=== PATIENT | male | born 2000 | race Caucasian/White ===

== ENCOUNTER 2024-11-29 09:13 | Emergency (ER) | payer OTHER, SELFPAY ==
--- NOTE | ~2024-11-29 | CT_ITS ---
CLINICAL HISTORY: dizziness, foggy, headache CT head without contrast. COMPARISON: None FINDINGS: The visualized paranasal sinuses are clear. The mastoid air cells are clear. No calvarial fracture. No evidence for mass or mass effect. No intracranial hemorrhage or abnormal extra-axial fluid collection. No evidence of hydrocephalus. The basilar cisterns are patent. Posterior fossa is unremarkable. IMPRESSION: 1. No acute intracranial findings. This document has been electronically signed by: Chago Vargas MD on 11/29/2024 15:42:10
[2024-11-29 09:41] VITALS: BP 145/83; PULSE 75; RESP 18; TEMP 36.9; O2SAT 100; BMI 24.2
--- NOTE | 2024-11-29 09:45 | ECG_ITS ---
Test Reason : DIZZINESS Blood Pressure : */* mmHG Vent. Rate : 68 BPM Atrial Rate : 68 BPM P-R Int : 138 ms QRS Dur : 104 ms QT Int : 368 ms P-R-T Axes : 18 87 24 degrees QTcB Int : 391 ms Normal sinus rhythm Normal ECG No previous ECGs available Referred By: Generic ED Physician Electronically Signed By: RANJAN CASTELLANO
[2024-11-29 10:15] LABS: Basophils Percent Auto 0.5 % (0-2); Eosinophils Absolute Auto 0.2 X10*3/uL (0.0-0.4); Hematocrit 44.4 % (42.0-52.0); Hemoglobin 15.3 g/dl (14.0-18.0); Imm Gran Abs Auto 0.01 X10*3/uL (0.00-0.03); Imm Gran Pct Auto 0.2 % (0.0-0.4); Lymphocytes Absolute Auto 1.6 X10*3/uL (1.2-4.9); Lymphocytes Percent Auto 27.3 % (20-40); MANUAL DIFF FLAG NO; Mean Corpuscular HGB Conc 34.5 g/dl (31.0-36.0); Mean Corpuscular Hemoglobin 29.7 pg (27.0-33.0); Mean Platelet Volume 10.6 fL (9.4-12.4); Monocytes Absolute Auto 0.4 X10*3/uL (0.1-1.2); Monocytes Percent Auto 6.4 % (2-11); Neutrophils Absolute Auto 3.6 x10*3/uL (2.0-8.3); Neutrophils Percent Auto 62.6 % (45-73); Platelet Count 220 X10*3/uL (160-400); Red Blood Count 5.16 X10*6/uL (4.60-5.80); Red Cell Distribution Width 12.9 % (11.0-16.0); White Blood Count 5.8 X10*3/uL (4.8-10.8)
[2024-11-29 10:32] LABS: Alanine Aminotransferase 28 U/L (0-40); Albumin Level 4.8 g/dL (3.5-5.0); Alkaline Phosphatase 65 U/L (39-117); Anion Gap 11 (12-20); Aspartate Amino Transferase 25 U/L (5-37); Bilirubin Total 0.7 mg/dL (0.0-1.0); Blood Urea Nitrogen 14 mg/dL (9-16); Calcium 9.6 mg/dL (8.4-10.2); Carbon Dioxide 28 mmol/L (22-29); Chloride 104 mmol/L (96-108); Creatinine Clr Calc Pharmacy 118.1; Estimated Glomerular Filt Rate > 60; Glucose Random 101 mg/dL (60-115); Potassium 4.4 mmol/L (3.3-5.1); Sodium 139 mmol/L (135-145); Total Protein 8.2 g/dL (6.5-8.0)
[2024-11-29 10:52] LABS: Influenza A PCR NEGATIVE (Negative); Influenza B PCR NEGATIVE (Negative); Resp Syncy Virus RNA Qual PCR NEGATIVE (Negative); SARS COV2 PCR INHOUSE NEGATIVE (Negative)
[2024-11-29 12:16] LABS: Appearance Urine Clear; Color Urine Yellow; Glucose Urine UA Negative (Negative); Leukocyte Esterase Urine Negative (Negative); Nitrite Urine Negative (Negative); Specific Gravity - Urine <= 1.005 (1.005-1.025); Urine Blood Negative (Negative); Urine Ketones Negative (Negative); Urine Protein Negative (Neg-Trace)
--- NOTE | 2024-11-29 14:15 | ED.DIZZY ---
HPI - Dizziness General Chief Complaint: Dizziness Stated Complaint: weakness Time Seen by Provider: 11/29/24 14:15 Source: patient and family (dad) Mode of arrival: ambulatory Limitations: no limitations History of Present Illness ED Provider: NUSRAT SHAHID PA-C HPI Narrative: 24 year old male with pmhx significant for pilonidal cysts, nephrectomy, presents to the ED today for evaluation of feeling like I am going to pass out . 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 He denies LOC, falling to the ground or head strike. Not on AC. He was not exerting himself with this feeling occurred. He also reports feeling sweaty, nauseous, and weak during this episode. He reports waking up with a generalized headache this morning, which is unusual for him. He denies recent illnesses or known sick contacts. Reports similar episodes in the past month, but states previous episodes only last a couple of minutes before completely resolving and were not as severe. He denies personal cardiac history or family cardiac history. No sudden cardiac deaths in the faily. At evaluation in the ED, he states his symptoms have resolved aside from a feeling of fogginess . Denies fever, chills, N/V, vision changes, chest pain, SOB, palpitations, LE pain/swelling. No recent travel or long car rides. No recent surgery or trauma. Related Data Allergies Allergy/AdvReac Type Severity Reaction Status Date / Time No Known Allergies Allergy Verified 11/29/24 09:43 Review of Systems Review of Systems: Constitutional: No fever, chills, fatigue, night sweats, weight changes ENT/Mouth: No ear pain, hearing loss, nasal congestion, sinus pain, rhinorrhea, sore throat Eyes: No eye pain, swelling, redness, vision changes, discharge Cardio: No chest pain, palpitations, BIRCH, orthopnea, peripheral edema Pulm: No SOB, cough, sputum, wheezing, dyspnea, hemoptysis GI: No nausea, vomiting, hematemesis, abdominal pain, diarrhea, constipation, hematochezia, melena : No irregular bleeding, dysuria, frequency, urgency, hesitancy, hematuria, flank pain, urinary flow changes, urinary incontinence or retention MSK: No back pain, neck pain, joint pain, myalgias Skin: No lesions, rashes Neuro: No weakness, numbness, paresthesias, LOC, dizziness, headache Psych: No anxiety/panic, depression, SI/HI, AH/VH All other systems reviewed and are negative. [facility] Past Medical History Attestation statement: The following information was validated with the patient. Source: old records reviewed and nursing notes reviewed Social History Social History Alcohol intake: current Alcohol type: beer Physical Exam Vital Signs: Vital Signs: Last Vital Signs Temp 98.0 F 11/29/24 16:42 Pulse 79 11/29/24 16:42 Resp 18 11/29/24 16:42 BP 120/78 11/29/24 16:42 Pulse Ox 99 11/29/24 16:42 O2 Del Method Room Air 11/29/24 16:42 BMI result Body Mass Index 24.2 vital signs stable General: Well appearing, in no acute distress. Skin: Warm, dry, intact. No rashes or lesions. Head: Normocephalic, atraumatic. EENT: Hearing is intact b/l. Conjunctiva clear. Sclera is anicteric. PERRLA. EOM intact. Moist mucous membranes.? Neck: Supple without LAD Cardiac: Chest wall symmetric. RRR. Lungs: Normal respiratory effort without accessory muscle use. CTA bilaterally. Abdomen: Soft, non-tender, non-distended. No rebound tenderness or guarding. Ext: Upper and lower extremities atraumatic, without tenderness, deformity, swelling or erythema. no calf tenderness b/l. Neuro: AOx3. Normal speech. NIH 0. no facial droop or slurred speech. normal finger to nose, heel to freeman. Strength 5/5 intact throughout. Sensation intact to light touch. NV intact distally. Psych: Appropriate mood and affect. Responds appropriately to questions. Course Course Course Narrative: 153 -- CBC without leukocytosis or left shift. No anemia. H&H stable. Chemistry without acute electrolyte abnormality requiring intervention. No ARVIND. Liver function WNL. troponin undetectable. TSH WNL. Urine without infection. Negative COVID, flu, RSV. CT head without bleed or mass. ekg showing NSR without acute ischemic changes or st elevations. > at this time, cause of these episodes are unclear. he does not appear dehydrated, orthostatic vital signs are negative, he is not hypoglycemic, it does not appear cardiac related as he denies chest pain/palpitations/sob, not consistent with seizure like activity, PERC negative (PE unlikely) > he was treated with 1L IVF while in ED today. he is asymptomatic at present. > discussed all work up results with patient. Advised to follow up with his PCP. Patient has remained stable throughout ED visit today. Discussed worrisome signs and symptoms and when to return to the ED. All questions answered at this time. Patient is agreeable with disposition and stable for discharge. Medications Administered Discontinued Medications Generic Name Dose Route Start Last Admin Trade Name Freq PRN Reason Stop Dose Admin Sodium Chloride 1,000 mls @ 999 mls/hr 11/29/24 15:15 11/29/24 15:58 Ns IV 11/29/24 16:15 999 mls/hr .Q1H1M STONE Administration Medical Decision Making Medical Decision Making [facility] Narrative: 24 year old male with pmhx significant for pilonidal cysts, nephrectomy, presents to the ED today for evaluation of feeling like I am going to pass out . Differential diagnoses includes: viral syndrome, anemia, electrolyte abnormality, hypoglycemia, orthostatic hypotension, dehydration, BPPV vs labrynthitis No red flag features for central vertigo to include gradual onset, vertical/bidirectional or nonfatigable nystagmus, focal neurologic findings on exam (including inability to ambulate). Presentation not consistent with an acute INTEGRATED [employer]CUITS INSPECTOR infection, vertebral basilar artery insufficiency, cerebellar hemorrhage or infarction,?intracranial mass or bleed, temporal lobe epilepsy,?MS, trauma, complex migraine headache. I have also considered ACS, arrhythmia, PE (PERC ), pneumonia, UTI. Plan: labs, ekg, viral swabs, UA, trial of IVF, CT head/brain, serial reassessment Differential Diagnosis Differential Diagnoses: The differential diagnosis associated with the presentation includes as above. Admission/Observation not indicated Lab Data [facility] Lab Attestation statement: I reviewed the patient's lab results. as above. 11/29/24 10:08 11/29/24 10:08 Labs: Lab Results 11/29/24 11/29/24 Range/Units 10:08 12:00 WBC 5.8 (4.8-10.8) X10*3/uL RBC 5.16 (4.60-5.80) X10*6/uL Hgb 15.3 (14.0-18.0) g/dl Hct 44.4 (42.0-52.0) % MCV 86.0 (80.0-98.0) fL MCH 29.7 (27.0-33.0) pg MCHC 34.5 (31.0-36.0) g/dl RDW 12.9 (11.0-16.0) % Plt Count 220 (160-400) X10*3/uL MPV 10.6 (9.4-12.4) fL Immature Gran % (Auto) 0.2 (0.0-0.4) % Neut % (Auto) 62.6 (45-73) % Lymph % (Auto) 27.3 (20-40) % [place] % (Auto) 6.4 (2-11) % Eos % (Auto) 3.0 (0-4) % Baso % (Auto) 0.5 (0-2) % Lymph # (Auto) 1.6 (1.2-4.9) X10*3/uL [place] # (Auto) 0.4 (0.1-1.2) X10*3/uL Eos # (Auto) 0.2 (0.0-0.4) X10*3/uL Baso # (Auto) 0.0 (0.0-0.2) X10*3/uL Abs Immat Gran (auto) 0.01 (0.00-0.03) X10*3/uL Absolute Neuts (auto) 3.6 (2.0-8.3) x10*3/uL Absolute Nucleated RBC 0.000 (0.0-0.012) X10*3/uL Nucleated RBC % (auto) 0.0 (0.0-0.2) /100WBC Sodium 139 (135-145) mmol/L Potassium 4.4 (3.3-5.1) mmol/L Chloride 104 (96-108) mmol/L Carbon Dioxide 28 (22-29) mmol/L Anion Gap 11 L (12-20) BUN 14 (9-16) mg/dL Creatinine 1.14 (0.5-1.4) mg/dL Estim Creat Clear Calc 118.1 Estimated GFR > 60 Random Glucose 101 (60-115) mg/dL Calcium 9.6 (8.4-10.2) mg/dL Total Bilirubin 0.7 (0.0-1.0) mg/dL AST 25 (5-37) U/L ALT 28 (0-40) U/L Alkaline Phosphatase 65 (39-117) U/L Troponin I High Sens < 2.7 (<3.5-35.0) ng/L Total Protein 8.2 H (6.5-8.0) g/dL Albumin 4.8 (3.5-5.0) g/dL TSH 1.43 (0.32-4.0) uIU/mL Urine Color Yellow Urine Appearance Clear Urine pH 7.0 (5.0-9.0) Ur Specific [place] <= 1.005 (1.005-1.025) Urine Protein Negative (Neg-Trace) mg/dL Urine Glucose (UA) Negative (Negative) mg/dL Urine Ketones Negative (Negative) mg/dL Urine Blood Negative (Negative) Urine Nitrite Negative (Negative) Ur Leukocyte Esterase Negative (Negative) Influenza Type A (PCR) NEGATIVE (Negative) Influenza Type B (PCR) NEGATIVE (Negative) RSV RNA Qual (PCR) NEGATIVE (Negative) SARS-CoV-2 RNA (RT-PCR) NEGATIVE (Negative) Independent Interpretation I performed an independent interpretation of an: EKG and CT Scan Interpretation: ct head/ brain without intracranial bleed or mass EKG showing normal sinus rhythm, rate of 68 beats per minute, QT 368, QTC 391, no acute ischemic changes or ST elevation Radiology Impression Discussion of test interpretation with radiology: I have reviewed the radiologist's reading. Radiologist Impression: Date of Service: 11/29/24 Procedure(s): CT head/brain wo IV con Accession Number(s): [id number] cc: [facility]; Nusrat Shahid~ Report Number: [id number]: Total DLP = 754.00 mGy-cm CLINICAL HISTORY: dizziness, foggy, headache CT head without contrast. COMPARISON: None FINDINGS: The visualized paranasal sinuses are clear. The mastoid air cells are clear. No calvarial fracture. No evidence for mass or mass effect. No intracranial hemorrhage or abnormal extra-axial fluid collection. No evidence of hydrocephalus. The basilar cisterns are patent. Posterior fossa is unremarkable. IMPRESSION: 1. No acute intracranial findings. This document has been electronically signed by: Chago Vargas MD on 11/29/2024 15:42:10 Independent Historian Clinical information obtained from an independent historian. History obtained from or confirmed by: Parent (dad) Social Determinants Patient?s care significantly limited by Social Determinants of Health including: Other Social Determinant of Health Critical Care Time Critical Care Time Critical Care Time: No Discharge Plan Discharge Clinical Impression: Light headedness Patient Disposition: Home, Self-Care Instructions: Lightheadedness (ED) Additional Instructions: Your work up today is reassuring. Your blood count is normal, no anemia. There is no white count to indicate an infection. Your thyroid levels are normal. Your cardiac enzyme is normal. Your ekg is normal. The CT scan of your head is normal - there is not intracranial bleed or mass. You tested negative for covid, flu, rsv. Your blood pressure did not drop when going from lying to sitting to standing. You've received IV fluids in ED today. At this time, it is unclear what may be causing these episodes but your work up today is reassuring. Make sure you are staying adequately hydrated. Please follow up with your outpatient primary care provider within the next week or two. Return with any new or worsening symptoms. In the case of an emergency call 911. Referrals: [facility] [Primary Care Provider] - Stand Alone Forms: Work/School Release Interventions: ED Discharge Assessment Last Done: 11/29/24 16:42 Discharge Date/Time: 11/29/24 16:42 Print Language: Icelandic
[2024-11-29 14:25] VITALS: BP 133/80; PULSE 61; RESP 18; TEMP 36.7; O2SAT 99
[2024-11-29 14:49] LABS: TSH reflex Free T4 1.43 uIU/mL (0.32-4.0)
[2024-11-29 15:10] VITALS: BP 119/77; BP 130/77; PULSE 58; PULSE 63
[2024-11-29 15:12] VITALS: BP 120/78; PULSE 79
[2024-11-29] MEDS: 0.9 % Sodium Chloride 1,000 ML 999 ML IV (15:58)
[2024-11-29 16:15] LABS: Troponin-I High Sensitivity < 2.7 ng/L (<3.5-35.0)
[2024-11-29 16:42] VITALS: BP 120/78; PULSE 79; RESP 18; TEMP 36.7; O2SAT 99
== END 2024-11-29 16:42 | disposition home or self-care (01) ==
PROVIDERS: Physician Assistant Medical; Emergency Provider Emergency Medicine
DX: R42 Dizziness and giddiness (principal); Z03.818 Encounter for observation for suspected exposure to other biological agents ruled out
CPT/HCPCS: 0241U; 70450; 80053; 81003; 84443; 84484; 85025; 93005; 96360; 99284; 99285

== ENCOUNTER → 2024-11-29 09:45 | Outpatient (BNV) | payer OTHER, SELFPAY | PROVIDERS: Emergency Provider Emergency Medicine; Visit Provider Internal Medicine | DX: R42 Dizziness and giddiness (principal) | CPT/HCPCS: 93010 ==

== ENCOUNTER → 2024-11-29 14:31 | Outpatient (BNV) | payer OTHER, SELFPAY | PROVIDERS: Emergency Provider Emergency Medicine; Visit Provider Radiology Diagnostic Radiology | DX: R42 Dizziness and giddiness (principal) | CPT/HCPCS: 70450 ==

== ENCOUNTER 2024-12-18 11:29 | Outpatient (AMB) | payer OTHER, SELFPAY ==
[2024-12-18 11:34] VITALS: BP 110/78; PULSE 81; RESP 18; TEMP 37.2; O2SAT 98; BMI 24.1
--- NOTE | 2024-12-18 11:34 | A.OFFPC_ITS ---
Vital Signs 12/18/24 11:34 Height 6 ft 2 in Weight 188 lb BMI 24.1 BP 110/78 Blood Pressure Location Lt brachial Position Sitting Respiration 18 Pulse 81 Pulse Source Pulse Oximeter Temp 98.9 F Temp Source Oral Pulse Oximetry (%) 98 Oxygen Delivery Method Room Air Intake Visit Reasons: establish care Web Marketing Intern Required: No Accompanied by: Self / Same As Patient Allergies No Known Allergies Allergy (Verified 12/18/24 11:53) Medication List - Last Reconciled 12/18/24 by MARIO Riley doxycycline monohydrate 100 mg PO BID Tobacco use date assessed: 12/18/24 Dental Screening Dental Screen Date: 12/18/24 Did you have a dental visit in the last 12 months?: Yes Did you have a dental problem in the last 6 months where you did not have access to dental care?: No Was dental information given to patient?: Patient has dentist HPI establish care HPI Details Previous PCP: [facility] Last visit:3-4 years Last PE: 2022 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 He had 3 surgery to stop the bleeding, then they removed. At [facility]. Medications:doxycycline Family HX: Problem: Pilonial cyst: He was placed on Doxycycline 100 mg BID for month by dermatology. He is supposed to keep eye on this and follow up with them. He is asking to be referred to surgeon to get removed. Been going on for months now. Reports that he is not sure how long it been there before he noticed it. [facility] Surgical History H/O right nephrectomy Social History Housing: House Alcohol intake: current Alcohol type: beer Patient Tobacco Use Status: Never used Tobacco e-Cigarette/Vaping Use: Never Used Second Hand Smoke Exposure: No service: No Current occupational status: employed Current occupational exposures/hazards: Yes Cognitive needs: No Hearing needs: No Vision needs: No Questionnaire PHQ-9 Over the last 2 weeks, how often have you been bothered by any of the following problems? 1. Little interest or pleasure in doing things: not at all 2. Feeling down, depressed, or hopeless: not at all 3. Trouble falling or staying asleep, or sleeping too much: not at all 4. Feeling tired or having little energy: not at all 5. Poor appetite or overeating: not at all 6. Feeling bad about yourself - or that you are a failure or have let yourself or your family down: not at all 7. Trouble concentrating on things, such as reading the newspaper or watching television: not at all 8. Moving or speaking so slowly that other people could have noticed. Or the opposite - being so fidgety or restless that you have been moving around a lot more than usual: not at all 9. Thoughts that you would be better off or of hurting yourself in some way: not at all Total score: 0 Depression Screening Interpretation: Negative Depression Screening Done: Yes 35079 - PHQ-9 Billing: Yes Source: Developed by Drs. Skyler Giordano, Zulma Armstrong, Erich Ortega and colleagues, with an educational ofe from [employer]. Thrive Questionnaire Date Thrive assessed: 12/18/24 I am a: Patient What is your living situation today?: I have a steady place to live Within the past 12 months, did the food you bought not last and you didn't have the money to get more?: Never true Within the past 12 months, did you worry whether your food would run out before you got money to buy more?: Never true Do you have trouble paying for medicines?: No Do you have trouble getting transportation to medical appointments?: No Do you have trouble paying your heating and electricity bill?: No Do you have trouble taking care of your child, family member or friend?: No Do you have trouble with day-to-day activities such as bathing, preparing meals, shopping, managing finances, etc.?: No Are you currently unemployed and looking for a job?: No Are you interested in more education?: No Please select the resources that you would like help with: None Currently or been in a relationship where the following occur: No concerns reported THRIVE Score: 0 AUDIT C Alcohol Use Questionnaire (AUDIT-C) 1. How often do you have a drink containing alcohol?: 2-4 times a month 2. How many drinks containing alcohol do you have on a typical day when you are drinking?: 1 or 2 3. How often do you have six or more drinks on one occasion?: Less than monthly Total Score: 3 ZACHARY-7 AMB Questionnaire ZACHARY-7 Date ZACHARY - 7 assessed: 12/18/24 Feeling nervous, anxious, or on edge: 0 = Not at all Not being able to stop or control worryin = Not at all Worrying too much about different things: 0 = Not at all Trouble relaxin = Not at all Being so restless that it is hard to sit still: 0 = Not at all Becoming easily annoyed or irritable: 0 = Not at all Feeling afraid as if something awful might happen: 0 = Not at all Total ZACHARY-7 score (0-4 normal; 5-9 mild; 10-14 moderate; 15-21 severe): 0 Source: Developed by Drs. Skyler Giordano, Zulma Armstrong, Erich Ortega and colleagues, with an educational ofe from [employer]. ZACHARY-7 Assessment Billing ZACHARY-7 Assessment Tool: ZACHARY-7 Assessment 29492 Review of Systems Const Denies headache(s) Eyes Denies loss of vision ENT Denies vertigo, Denies dizziness, Denies headache(s) and Denies sore throat Card Denies chest pain, Denies leg edema and Denies lightheadedness Resp Denies cough, Denies hemoptysis and Denies wheezing GI Denies abdominal pain, Denies melena, Denies constipation, Denies diarrhea, Denies vomiting and Reports other (recurrent pilonidal cyst) Denies dysuria, Denies urinary frequency and Denies urinary urgency Musc Denies arthralgias, Denies joint swelling, Denies numbness and Denies tingling Neuro Denies Abnormal speech present, Denies behavioral changes, Denies vertigo, Denies dizziness, Denies headache(s), Denies loss of vision, Denies memory loss, Denies numbness and Denies tingling Psych Denies anxiety, Denies behavioral changes, Denies depression, Denies memory loss and Denies panic attacks García/Lymph Denies easy bleeding and Denies easy bruising Aller/Immun Denies wheezing Physical exam (Primary Care) Vital Signs: Last Vital Signs Temp 98.9 F 12/18/24 11:34 Pulse 81 12/18/24 11:34 Resp 18 12/18/24 11:34 BP 110/78 12/18/24 11:34 Pulse Ox 98 12/18/24 11:34 Oxygen Delivery Method Room Air 12/18/24 11:34 BMI result Body Mass Index 24.1 Tobacco/Smoking Status: Tobacco use Status Tobacco use date assessed 12/18/24 12/18/24 11:41 Patient Tobacco Use Status Never used Tobacco 12/18/24 11:41 e-Cigarette/Vaping Use Never Used 12/18/24 11:41 PHQ-9: PHQ-9 Score PHQ-9: Total score 0 12/18/24 12:03 Depression Screening Interpretation: Negative Thrive Assessment: Date of Thrive Assessment Date Thrive assessed 12/18/24 12/18/24 11:41 Currently or been in a relationship where the following occur: No concerns reported Const General: healthy appearing, no acute distress, alert and awake Nutritional Appearance: well nourished Orientation/consciousness: oriented to person, oriented to place and oriented to time HENMT Ears: TM's normal bilaterally General nose exam: Normal nasal mucous membranes and turbinates present Eyes Conjunctivae: conjunctivae normal Sclerae: sclerae normal Pupils: Equal, round and reactive pupils present Neck Neck: Yes no lymphadenopathy and Yes no JVD Thyroid: Thyroid normal Carotids: no bruits Resp Effort & Inspection: normal respiratory effort and not tachypneic Auscultation: no crackles, no rales, no rhonchi and no wheezes Cardio Rate: regular rate Rhythm: regular rhythm Heart sounds: no murmurs and normal S1 and S2 GI Palpation (GI): Soft to palpation, nontender, no hepatomegaly and no splenomegaly Auscultation: normal bowel sounds Rectal Exam - Male: Yes Lesions present (GI) (pilonidal cyst) General: Yes no CVA tenderness Back/Spine/Pelvis Back: no CVA tenderness Skin General skin exam: no rashes or lesions noted and dry skin Neuro General: oriented to person, oriented to place and oriented to time Cranial nerves: Yes Equal, round and reactive pupils present Speech: No Abnormal speech present Gait exam (Neuro): Normal gait present Motor exam (neuro): no tremor noted Extrem Right upper extremity: full ROM Left upper extremity: full ROM Right lower extremity: full ROM; no edema Left lower extremity: full ROM; no edema Psych Mental Status: mental status grossly normal Speech and movement: Normal speech and movement present Affect: normal affect Attitude: cooperative Thought process: Normal thought process present Coding Level of Care Code New Pt Level 3 (46663) Diagnoses Encounter to establish care with new provider Z76 Pilonidal cyst L05. Additional Codes PHQ-9 - 00403 - PHQ-9 Billing: Yes ([id number]) ZACHARY-7 Assessment Billing - ZACHARY-7 Assessment Tool: ZACHARY-7 Assessment 63189 ([id number]) Time Spent (min) 36 Assessment & Plan Assessment & Plan (1) Encounter to establish care with new provider: Code(s): Z76.89 - Persons encountering health services in other specified circumstances Category: Medical Plan: ordered labs, will advise (2) Pilonidal cyst: Code(s): L. - Pilonidal cyst without abscess Category: Medical Plan: reports recurrent pilonidal cyst he is currently being treated with doxycycline by dermatology he would like this to be surgically removed due to the discomfort and the reoccurrence general surgery referral placed Orders: Orders Comprehensive [place]. Panel Fast 12/18/24 Z - Persons encountering health services in other specified circumstances TSH reflex Free T4 12/18/24 - Persons encountering health services in ot her specified circumstances Complete Blood Count Auto Diff 12/18/24 - Persons encountering health services in other specified circumstances Lipid Panel 12/18/24 - Persons encountering health services in other specified circumstances UA CC w/rflx Micro + Cult 12/18/24 - Persons encountering health services in other specified circumstances Vitamin D 25-OH Total 12/18/24 - Persons encountering health services in other specified circumstances
--- OUTSIDE RECORDS SUMMARY | 2024-12-18 13:53 | XMS_ITS | Encounter Summary ---
Author Organization [facility] Address [address] [place] [phone] Phone Care Team Providers Care Squeegee Finisher Name Role Phone Kurtis Siddiqui MD Primary Care Provider [phone] Encounter Details Date Type Department Care Team (Late st Contact Info) Description 01/30/2014 Documentation [facility] [address] [place], [place] [id number] Family Medicine, Physician [address] [place] [address] Social History Tobacco Use Types Packs/Day Years Used Date Smoking Tobacco: Never Assessed Sex and Gender Information Value Date Recorded Sex Assigned at Not on file Legal Sex Male 5:09 PM EDT Gender Identity Not on file Sexual Orientation Not on file documented as of this encounter Plan of Treatment Not on file documented as of this encounter Visit Diagnoses Not on filedocumented in this encounter Care Teams Squeegee Finisher Relationship Specialty Start Date End Date Kurtis Siddiqui MD [address] [place], [place] [id number] PCP - General Pediatrics 07/17/17 11/21/23 documented as of this encounter
== END 2024-12-18 12:20 | disposition home or self-care (01) ==
LOC: HO.HMCH 11:30
DX: Z76.89 Persons encountering health services in other specified circumstances (principal); L05.91 Pilonidal cyst without abscess

== ENCOUNTER → 2024-12-18 11:29 | Outpatient (BNVA) | payer OTHER, SELFPAY | DX: L05.91 Pilonidal cyst without abscess (principal); Z76.89 Persons encountering health services in other specified circumstances | CPT/HCPCS: 96127 ==

== ENCOUNTER 2025-02-24 09:24 | Outpatient (AMB) | payer OTHER, SELFPAY ==
[2025-02-24 09:26] VITALS: BP 106/62; PULSE 66; RESP 18; TEMP 36.3; O2SAT 97; BMI 23.4
--- NOTE | 2025-02-24 09:26 | MHC.PC.OV ---
Vital Signs 02/24/25 09:26 Height 6 ft 2 in Weight 182 lb 2 oz BMI 23.4 BP 106/62 Blood Pressure Location Lt brachial Position Sitting Respiration 18 Pulse 66 Pulse Source Pulse Oximeter Temp 97.3 F Temp Source Temporal Artery Scan Pulse Oximetry (%) 97 Oxygen Delivery Method Room Air Intake Visit Reasons: annual Family Law Legal Assistant Required: No Accompanied by: Self / Same As Patient Allergies No Known Allergies Allergy (Verified 02/24/25 09:38) Medication List - Last Reconciled 02/24/25 by MARIO Riley No Known Home Meds Tobacco use date assessed: 02/24/25 Dental Screening Dental Screen Date: 02/24/25 Did you have a dental visit in the last 12 months?: Yes Did you have a dental problem in the last 6 months where you did not have access to dental care?: No Was dental information given to patient?: Patient has dentist HPI annual HPI Details Patient is presenting for annual physical Dentist: up to date Eye: up to date Snellen: Right: Left: Corrected vision: yes-prescribed glasses but does not wear them often STI screening:n/a Colonoscopy:n/a Pap Smer:n/a PHQ-9: Flu:has not taken this in couple to years COVID: x2 Tdap: reports having this in the last 5 years due to cut from working on cars Diet:regular Exercise:reports working out about 3 times a week. The patient is a 24-year-old male presenting with a follow-up on tuberculosis exposure and a pilonidal cyst requiring surgical consultation. The patient reports a recent exposure to tuberculosis, which occurred on a Sunday, with subsequent symptoms appearing the following Sunday night. He acknowledges that the symptoms were likely psychosomatic as they appeared too soon after exposure. He was in the same room as the infected individual for approximately five minutes and has not experienced any further symptoms since the initial incident. The patient also reports visual impairment, for which he has been prescribed corrective lenses. He uses the glasses occasionally, primarily when experiencing headaches or eye fatigue, particularly in the evening while watching television. Additionally, the patient has a pilonidal cyst that requires surgical consultation. He expresses a desire for the cyst to be removed soon due to its annoyance. The consultation is scheduled at a [facility] general surgery In terms of preventative care, the patient has undergone a complete metabolic panel to assess liver and kidney function. He is aware of the importance of avoiding nephrotoxic medications such as ibuprofen. The patient had TB exposure, he is due to go get tb spot in 7 weeks; he has been asymptomatic [facility] Surgical History H/O right nephrectomy Social History Housing: House Alcohol intake: current Alcohol type: beer Patient Tobacco Use Status: Never used Tobacco e-Cigarette/Vaping Use: Never Used Second Hand Smoke Exposure: No service: No Current occupational status: employed Current occupational exposures/hazards: Yes Cognitive needs: No Hearing needs: No Vision needs: No Questionnaire PHQ-9 Over the last 2 weeks, how often have you been bothered by any of the following problems? 1. Little interest or pleasure in doing things: not at all 2. Feeling down, depressed, or hopeless: not at all 3. Trouble falling or staying asleep, or sleeping too much: not at all 4. Feeling tired or having little energy: not at all 5. Poor appetite or overeating: not at all 6. Feeling bad about yourself - or that you are a failure or have let yourself or your family down: not at all 7. Trouble concentrating on things, such as reading the newspaper or watching television: not at all 8. Moving or speaking so slowly that other people could have noticed. Or the opposite - being so fidgety or restless that you have been moving around a lot more than usual: not at all 9. Thoughts that you would be better off or of hurting yourself in some way: not at all Total score: 0 Depression Screening Interpretation: Negative Depression Screening Done: Yes Source: Developed by Drs. Skyler Giordano, Zulma Armstrong, Erich Ortega and colleagues, with an educational ofe from [employer]. Thrive Questionnaire Date Thrive assessed: 02/24/25 I am a: Patient What is your living situation today?: I have a steady place to live Within the past 12 months, did the food you bought not last and you didn't have the money to get more?: Never true Within the past 12 months, did you worry whether your food would run out before you got money to buy more?: Never true Do you have trouble paying for medicines?: No Do you have trouble getting transportation to medical appointments?: No Do you have trouble paying your heating and electricity bill?: No Do you have trouble taking care of your child, family member or friend?: No Do you have trouble with day-to-day activities such as bathing, preparing meals, shopping, managing finances, etc.?: No Are you currently unemployed and looking for a job?: No Are you interested in more education?: No Please select the resources that you would like help with: None Currently or been in a relationship where the following occur: No concerns reported THRIVE Score: 0 AUDIT C Alcohol Use Questionnaire (AUDIT-C) 1. How often do you have a drink containing alcohol?: 2-4 times a month 2. How many drinks containing alcohol do you have on a typical day when you are drinking?: 1 or 2 3. How often do you have six or more drinks on one occasion?: Less than monthly Total Score: 3 ZACHARY-7 AMB Questionnaire ZACHARY-7 Date ZACHARY - 7 assessed: 02/24/25 Feeling nervous, anxious, or on edge: 0 = Not at all Not being able to stop or control worryin = Not at all Worrying too much about different things: 0 = Not at all Trouble relaxin = Not at all Being so restless that it is hard to sit still: 0 = Not at all Becoming easily annoyed or irritable: 0 = Not at all Feeling afraid as if something awful might happen: 0 = Not at all Total ZACHARY-7 score (0-4 normal; 5-9 mild; 10-14 moderate; 15-21 severe): 0 Source: Developed by Drs. Skyler Giordano, Zulma Armstrong, Erich Ortega and colleagues, with an educational ofe from [employer]. Review of Systems Const Denies headache(s) Eyes Denies loss of vision ENT Denies vertigo, Denies dizziness, Denies headache(s) and Denies sore throat Card Denies chest pain, Denies leg edema and Denies lightheadedness Resp Denies cough, Denies hemoptysis and Denies wheezing GI Denies abdominal pain, Denies melena, Denies constipation, Denies diarrhea, Denies vomiting and Reports other (Pilonidal cyst) Denies dysuria, Denies urinary frequency and Denies urinary urgency Musc Denies arthralgias, Denies joint swelling, Denies numbness and Denies tingling Neuro Denies Abnormal speech present, Denies behavioral changes, Denies vertigo, Denies dizziness, Denies headache(s), Denies loss of vision, Denies memory loss, Denies numbness and Denies tingling Psych Denies anxiety, Denies behavioral changes, Denies depression, Denies memory loss and Denies panic attacks García/Lymph Denies easy bleeding and Denies easy bruising Aller/Immun Denies wheezing Physical exam (Primary Care) Vital Signs: Last Vital Signs Temp 97.3 F 02/24/25 09:26 Pulse 66 02/24/25 09:26 Resp 18 02/24/25 09:26 BP 106/62 02/24/25 09:26 Pulse Ox 97 02/24/25 09:26 Oxygen Delivery Method Room Air 02/24/25 09:26 BMI result Body Mass Index 23.4 Tobacco/Smoking Status: Tobacco use Status Tobacco use date assessed 02/24/25 02/24/25 09:32 Patient Tobacco Use Status Never used Tobacco 02/24/25 09:32 e-Cigarette/Vaping Use Never Used 02/24/25 09:32 PHQ-9: PHQ-9 Score PHQ-9: Total score 0 02/24/25 09:42 Depression Screening Interpretation: Negative Thrive Assessment: Date of Thrive Assessment Date Thrive assessed 02/24/25 02/24/25 09:32 Currently or been in a relationship where the following occur: No concerns reported Const General: healthy appearing, no acute distress, alert and awake Nutritional Appearance: well nourished Orientation/consciousness: oriented to person, oriented to place and oriented to time HENMT Ears: TM's normal bilaterally General nose exam: Normal nasal mucous membranes and turbinates present Eyes Conjunctivae: conjunctivae normal Sclerae: sclerae normal Pupils: Equal, round and reactive pupils present Neck Neck: Yes no lymphadenopathy and Yes no JVD Thyroid: Thyroid normal Carotids: no bruits Resp Effort & Inspection: normal respiratory effort and not tachypneic Auscultation: no crackles, no rales, no rhonchi and no wheezes Cardio Rate: regular rate Rhythm: regular rhythm Heart sounds: no murmurs and normal S1 and S2 GI Palpation (GI): Soft to palpation, nontender, no hepatomegaly and no splenomegaly Auscultation: normal bowel sounds and other (Ongoing pilonidal cyst) Rectal Exam - Male: Yes deferred General: Yes no CVA tenderness Back/Spine/Pelvis Back: no CVA tenderness Thoracic/Lumbar Spine: thoracic and lumbar spine normal to inspection Skin General skin exam: dry skin Lesions: lesion noted (Ongoing pilonidal cyst) Neuro General: oriented to person, oriented to place and oriented to time Cranial nerves: Yes Equal, round and reactive pupils present Speech: No Abnormal speech present Gait exam (Neuro): Normal gait present Motor exam (neuro): no tremor noted Deep tendon reflexes (DTR's): Right triceps reflex intensity grade: 2+, Left triceps reflex intensity grade: 2+, Rt Biceps (C5, C6): 2+, Left biceps reflex intensity grade: 2+, Right brachioradialis reflex intensity grade: 2+, Left brachioradialis reflex intensity grade: 2+, Right patellar reflex intensity grade: 2+ and Left patellar reflex intensity grade: 2+ Extrem Right upper extremity: full ROM Left upper extremity: full ROM Right lower extremity: full ROM; no edema Left lower extremity: full ROM; no edema Psych Mental Status: mental status grossly normal Speech and movement: Normal speech and movement present Affect: normal affect Attitude: cooperative Thought process: Normal thought process present Coding Level of Care Code Est Pt Prev Care 18-39y([id number]) Diagnoses Annual physical exam Z00.00 Exposure to TB Z20.1 Pilonidal cyst L05.91 Time Spent (min) 34 Assessment & Plan Assessment & Plan (1) Annual physical exam: Code(s): Z00.00 - Encounter for general adult medical examination without abnormal findings Category: Medical Plan: Preventative guidelines reviewed with the patient. Patient has not completed preordered labs-encouraged completing these labs as soon as possible. (2) Exposure to TB: Code(s): Z20.1 - Contact with and (suspected) exposure to tuberculosis Category: Medical Plan: Reports exposure of TB after being in her room for approximately 5 minutes with the patient positive for TB. Reports started feeling symptoms the day after and was told that he would not be having symptoms related to TB that quick given the incubation period. The T-spot was ordered for the patient to complete in 7 weeks. 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
--- OUTSIDE RECORDS SUMMARY | 2025-02-24 10:22 | XMS_ITS | Encounter Summary ---
Author Organization [facility] Address [address] [place] [address] Phone Care Team Providers Care Principal Web Developer Name Role Phone Kurtis Siddiqui MD Primary Care Provider [phone] Encounter Details Date Type Department Care Team (Late st Contact Info) Description 10/20/2016 Documentation [facility] [place] [address] [place], [place] [phone] Family Medicine, Physician [address] [place] [address] Social History Tobacco Use Types Packs/Day Years Used Date Smoking Tobacco: Never Comments:Never smoker Sex and Gender Information Value Date Recorded Sex Assigned at Not on file Legal Sex Male 5:09 PM EDT Gender Identity Not on file Sexual Orientation Not on file documented as of this encounter Plan of Treatment Not on file documented as of this encounter Visit Diagnoses Not on filedocumented in this encounter Care Teams Principal Web Developer Relationship Specialty Start Date End Date Kurtis Siddiqui MD [address] [place] [address] [place] [address] PCP - General Pediatrics 07/17/17 11/21/23 documented as of this encounter
--- OUTSIDE RECORDS SUMMARY | 2025-02-24 10:22 | XMS_ITS | Encounter Summary ---
Author Organization [facility] Address [address] [place] [address] Phone Care Team Providers Care Religious Educator Name Role Phone Kurtis Siddiqui MD Primary Care Provider [phone] Encounter Details Date Type Department Care Team (Late st Contact Info) Description 09/03/2015 Documentation [facility] Family Medicine [address] [place], [place] [phone] Family Medicine, Physician [address], [place] [address] Social History Tobacco Use Types Packs/Day Years [...] on filedocumented in this encounter Care Teams Religious Educator Relationship Specialty Start Date End Date Kurtis Siddiqui MD [address] [place], [place] [address] [address] PCP - General Pediatrics 07/17/17 11/21/23 documented as of this encounter
--- OUTSIDE RECORDS SUMMARY | 2025-02-24 10:22 | XMS_ITS | Encounter Summary ---
Author Organization [facility] Address [address] [place] [address] Phone Care Team Providers Care Residence Life Director Name Role Phone Kurtis Siddiqui MD Primary Care Provider [phone] Encounter Details Date Type Department Care Team (Late st Contact Info) Description 10/23/2016 Documentation [facility] [place] [address] [place], [place] [phone] Family Medicine, Physician [address] [place] [address] Social History Tobacco Use Types Packs/Day Years [...] on filedocumented in this encounter Care Teams Residence Life Director Relationship Specialty Start Date End Date Kurtis Siddiqui MD [address] [place] [address] [place] [address] PCP - General Pediatrics 07/17/17 11/21/23 documented as of this encounter
--- OUTSIDE RECORDS SUMMARY | 2025-02-24 10:22 | XMS_ITS | Encounter Summary ---
Author Organization [facility] Address [address] [place] [address] Phone Care Team Providers Care Lead Fire Protection Engineer Name Role Phone Kurtis Siddiqui MD Primary Care Provider [phone] Encounter Details Date Type Department Care Team (Late st Contact Info) Description 10/20/2016 Documentation [facility] [place] [address] [place], [place] [phone] Family Medicine, Physician [address] [place] [address] Social History Tobacco Use Types Packs/Day Years [...] on filedocumented in this encounter Care Teams Lead Fire Protection Engineer Relationship Specialty Start Date End Date Kurtis Siddiqui MD [address] [place] [address] [place] [address] PCP - General Pediatrics 07/17/17 11/21/23 documented as of this encounter
--- OUTSIDE RECORDS SUMMARY | 2025-02-24 10:22 | XMS_ITS | Encounter Summary ---
Author Organization [facility] Address [address] [place] [address] Phone Care Team Providers Care Billing And Insurance Coordinator Name Role Phone Kurtis Siddiqui MD Primary Care Provider [phone] Encounter Details Date Type Department Care Team (Late st Contact Info) Description 02/08/2017 Conversion Encounter [facility] [place] [address] [place] [address] Social History Tobacco Use Types Packs/Day Years [...] on filedocumented in this encounter Care Teams Billing And Insurance Coordinator Relationship Specialty Start Date End Date Kurtis Siddiqui MD [address] [place] [address] PCP - General Pediatrics 07/17/17 11/21/23 documented as of this encounter
--- OUTSIDE RECORDS SUMMARY | 2025-02-24 10:22 | XMS_ITS | Clinical Summary ---
Author Organization [facility] Address [address] [place] [address] Phone Care Team Providers Care Dj Instructor Name Role Phone Unavailable Primary Care Provider Unavailabl e Allergies Active Allergy Reactions Criticality Noted Date Comments Diphenhydramine Other (see comments) 07/25/2017 sensitivity Medications No known medications Active Problems Problem Noted Date Diagnosed Date S/p nephrectomy 07/25/2017 Overview (08/27/2019): Grade 4 laceration to right kidney in 2016 resulting in nephroectomy. Followed by [facility] (Dr. Del Angel). Patient does not have any restrictions through [facility] for contact sports, though they have recommended wearing a kidney brace for contact sports. Patient wears brace as recommended for lacrosse and football. Encounters Date Type Department Care Team Description 12/31/2024 Telephone [facility] - [address] [phone] Georgette Burks MD Medical Records from Last 3 Months Immunizations Immunization Administration Dates Next Due DTaP 5 01/08/2007, 4,05/12/2003,03/25,01/14/2003 H1N1 07/05/2009,04/30/2009 HPV Vaccine 9 Valent 04/12/2015 HPV, Quadrivalent 12/08/2014,05/11/2014 Hep A, ped/adol 12/08/2014,05/11/2014 Hep B, ped/adol 11/24/2003,2002,2002 Hib (HbOC) 03/08/2004, 3,03/25/2003,01/14 IPV 01/08/2007, 3,03/25/2003,01/14 Influenza Split 05/06/2013,05/21/2012 Influenza, injectable, quadrivalent 04/12/2015 Influenza, injectable, quadr ivalent, preservative free 03/08/2020,08/27/2019,08/20/2018,08/06,07/13/2016,03/30/2014 Influenza, injectable, trivalent 010,06/19/2007,06/07/2006,05/31 Influenza, intranasal, trivalent 04/05/2010 MMR 01/08/2007,11/24/2003 Meningococcal Conj (Menactra) MCV4P 08/27/2019,1 07/11/2013 Pneumococcal Conjugate 11/15/2004,2002,03/25/2003,01/14 Tdap 05/11/2014 Varicella 11/24/2003 Family History Medical History Relation Name Comments No Known Problems Father Gaston No Known Problems Mother Iman Relation Name Status Comments Brother Jasvir Alive Father Gaston Alive Father: Alive a nd well Maternal Grandfather Materna l grandfather: Maternal Grandmother Materna l grandmother: thyroid Mother Iman Alive Mother: Alive a nd well Other Family history of Coronary artery disease, Family history of Cancer, bone, Family history of Genetic disease Paternal Grandfather Paterna l grandfather: everything Paternal Grandmother Alive Paterna l grandmother: Alive and well Social History Tobacco Use Types Packs/Day Years Used Date Smoking Tobacco: Never Smokeless Tobacco: Never Tobacco Cessation:Counseling Given: Yes Comments:Never smoker Alcohol Use Standard Drinks/Week Comments Never 0 (1 standard drink = 0.6 oz pur e alcohol) Hunger/Food Answer Date Recorded In the last 12 months, did y ou or your family ever eat less than you felt you should because there wasn't enough money for food? No 09/02/2020 Stable Housing Answer Date Recorded Are you worried that in the next 2 months you may not have stable housing? No 09/02/2020 Transportation Concerns Answer Date Rec orded In the last 12 months, have you or your family ever had to go without healthcare because you didn't have a way to get there? No 09/02/2020 Hazards in Home Answer Date Recorded Think about the place you li ve. Do you have problems with any of the following? Pests (mice or roaches), mold, no/not working smoke detectors, water leaks, no window guards. No 2020 Financing Utilities Answer Date Recorde d In the last 12 months, has t he electric, gas, oil, or water company threatened to shut off your services in your home? No 09/02/2020 Safety at Home Answer Date Recorded Are you or your family worried about feeling saf e in your home? No 09/02/2020 Outside Support Answer Date Recorded Do you feel that you need mo re support from other people or programs to help you care for yourself or your family? No 09/02/2020 Understanding Health Concerns Answer Da te Recorded Do you need help understandi ng your or your child's healthcare needs (diagnosis, medications, plan, etc.)? No 09/02/2020 Financing Health Concerns Answer Date R ecorded In the last 12 months, was t here a time when your child needed to see a doctor or get medications or supplies but could not because of cost? No 09/02/2020 Missing School or Work Answer Date Shar rded Did you or your child miss s chool or work because of a health problem that could have been avoided? No 09/02/2020 Sex and Gender Information Value Date Recorded Sex Assigned at Not on file Legal Sex Male 5:09 PM EDT Gender Identity Not on file Sexual Orientation Not on file Last Filed Vital Signs Vital Sign Reading Time Taken Comments Blood Pressure 126/79 09/02/2020 8:51 AM EST Pulse 68 09/02/2020 8:51 AM EST Temperature 36.1 C (96.9 F) 09/02/2020 8:51 AM EST Respiratory Rate - - Oxygen Saturation - - Inhaled Oxygen Concentration - - Weight 84.7 kg (186 lb 12.8 oz) 09/02/2020 8:51 AM EST Height 188 cm (6' 2 ) 09/02/2020 8:51 AM EST Body Mass Index 23.98 09/02/2020 8:51 AM EST Plan of Treatment Health Maintenance Due Date Last Done Comments Men B Vaccine (1 of 2 - Standard) 2018 DTaP,Tdap,and Td Vaccines (7 - Td or Tdap) 05/11/2024 05/11/2014, 01/08/2007, 05/31/2004, Additional history exists Influenza Vaccines (#1) 2025 04/01/20 21, 03/08/2020, 08/27/2019, Additional history exists COVID-19 Vaccine (3 2024-2 6 season) 2025 11/09/2020, 10/19/2020 Hepatitis B Vaccines Completed 11/24/2003, 2002, 2002 HIB Vaccines Completed 03/08/2004, 04/25, 03/25/2003, Additional history exists Pneumococcal Vaccine Completed 11/15/2004, 05/12/2003, 03/25/2003, Additional history exists IPV Vaccines Completed 01/08/2007, 04/25, 03/25/2003, Additional history exists MMR Vaccines Completed 01/08/2007, 11/24/2003 Hepatitis A Vaccines Completed 12/08/2014, 05/11/20 14 HPV Vaccines Completed 04/12/2015, 11/23, 05/11/2014 Meningococcal Vaccine Completed 08/27/2019, 014
--- OUTSIDE RECORDS SUMMARY | 2025-02-24 10:22 | XMS_ITS | Encounter Summary ---
Author Organization [facility] Address [address] [place] [address] Phone Care Team Providers Care Acid Treater Name Role Phone Kurtis Siddiqui MD Primary Care Provider Encounter Details Date Type Department Care Team (Late st Contact Info) Description 01/30/2014 Documentation [facility] [place] [address] [place], [place] [phone] Family Medicine, Physician [address] [place] [address] Social History Tobacco Use Types Packs/Day Years [...] on filedocumented in this encounter Care Teams Acid Treater Relationship Specialty Start Date End Date Kurtis Siddiqui MD [address] [place], [place] [address] [address] PCP - General Pediatrics 07/17/17 11/21/23 documented as of this encounter
== END 2025-02-24 09:54 | disposition home or self-care (01) ==
LOC: HO.HMCH 09:25
DX: Z00.00 Encounter for general adult medical examination without abnormal findings (principal); Z20.1 Contact with and (suspected) exposure to tuberculosis; L05.91 Pilonidal cyst without abscess

== ENCOUNTER 2025-02-24 13:30 | Outpatient (AMB) | payer OTHER, SELFPAY ==
--- NOTE | 2025-02-24 13:44 | MHC.OFFVIS ---
Vital Signs 02/24/25 13:54 Height 6 ft 2 in Weight 181 lb 4 oz BMI 23.3 BP 124/67 Blood Pressure Location Lt brachial Position Sitting Pulse 71 Intake Visit Reasons: pilonidol cyst Intake Note: Patient is seen in office for evaluation of a pilonidal cyst. Pt c/o: onset a year, discharge on and off, for the past months discharge daily, worse when sitting, redness, painful, was seen by Camera Storage Clerk and was on antibiotics Bunghole Borer Required: No Accompanied by: Self / Same As Patient Allergies No Known Allergies Allergy (Verified 02/24/25 13:53) Medication List - Last Reconciled 02/24/25 by Bhupendra Garcias MD amoxicillin 500 mg PO TID HPI Comments Details: 24-year-old male patient presenting for evaluation of a pilonidal cyst. He 1st noted the pilonidal cyst approximately 6 months ago. The cyst just started draining at that time and has persisted for the past 6 months. He has some mild discomfort associated with sitting. He denies any previous history of surgery or incision and drainage at the site. He did report some improvement while on amoxicillin for oral surgery. He is requesting excision of this pilonidal cyst. [facility], [facility] Surgical History H/O right nephrectomy Social History Housing: House Alcohol intake: current Alcohol type: beer Patient Tobacco Use Status: Never used Tobacco e-Cigarette/Vaping Use: Never Used Second Hand Smoke Exposure: No service: No Current occupational status: employed Current occupational exposures/hazards: Yes Cognitive needs: No Hearing needs: No Vision needs: No Review of Systems Const All systems reviewed & are unremarkable except as noted in HPI and below Physical Exam Vital Signs: Last Vital Signs Pulse 71 02/24/25 13:54 BP 124/67 02/24/25 13:54 BMI result Body Mass Index 23.3 Const General: cooperative and no acute distress Nutritional Appearance: well nourished Orientation/consciousness: patient oriented x3 Limitations: no limitations HEENT Head: Yes normocephalic and Yes atraumatic Ears: hearing grossly normal bilaterally Resp Effort & Inspection: normal respiratory effort, no audible wheezes, no cough and no respiratory distress Cardio Jugular venous distension: no JVD GI Inspection: Yes normal to inspection Back/Spine/Pelvis Other: Large firm area to the left of midline in the intergluteal cleft with an open draining sinus. Gentle pressure on the firm area produces thick, purulent fluid. No overlying erythema is appreciated. 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 Site of pilonidal cyst Skin Other: Warm, dry, no rash Neuro General: patient oriented x3 Extrem General: Yes no clubbing, cyanosis or edema Assessment & Plan Assessment & Plan (1) Pilonidal cyst: Code(s): L05.91 - Pilonidal cyst without abscess Category: Medical Plan 24-year-old male patient presenting with a chronic drainage from a pilonidal cyst to the left of midline which would benefit from excision. After discussion of the procedure, risks and alternatives, he consents to a pilonidal cystectomy. This will be scheduled as a short-stay surgery at his earliest convenience. Coding Level of Care Code New Pt Level 4 (09281) Diagnoses Pilonidal cyst L05.91
[2025-02-24 13:54] VITALS: BP 124/67; PULSE 71; BMI 23.3
== END 2025-02-24 14:23 | disposition home or self-care (01) ==
LOC: HO.HGS 13:31
PROVIDERS: Visit Provider Surgery
DX: L05.91 Pilonidal cyst without abscess (principal)
CPT/HCPCS: 99204

== ENCOUNTER 2025-03-18 05:49 | Day surgery (SDC) | payer OTHER, SELFPAY ==
--- OUTSIDE RECORDS SUMMARY | 2025-02-26 12:19 | XMS_ITS | Encounter Summary ---
Author Organization [facility] Address [address] [place] [address] Phone Care Team Providers Care Masking Machine Operator Name Role Phone Kurtis Siddiqui MD Primary Care Provider [phone] Encounter Details Date Type Department Care Team (Late st Contact Info) Description 09/03/2015 Documentation [facility] [place] [address] [place], [place] [phone] Family Medicine, Physician [address] [place], [place] [phone] Social History Tobacco Use Types Packs/Day Years [...] on filedocumented in this encounter Care Teams Masking Machine Operator Relationship Specialty Start Date End Date Kurtis Siddiqui MD [address] [place], [place] [address] PCP - General Pediatrics 07/17/17 11/21/23 documented as of this encounter
--- OUTSIDE RECORDS SUMMARY | 2025-02-26 12:19 | XMS_ITS | Encounter Summary ---
Author Organization [facility] Address [address] [place] [address] Phone Care Team Providers Care Needle Loom Operator Helper Name Role Phone Kurtis Siddiqui MD Primary Care Provider [phone] Encounter Details Date Type Department Care Team (Late st Contact Info) Description 01/30/2014 Documentation [facility] [place] [address] [place], [place] [phone] Family Medicine, Physician [address] [place] [address] Social History Tobacco Use Types Packs/Day Years [...] on filedocumented in this encounter Care Teams Needle Loom Operator Helper Relationship Specialty Start Date End Date Kurtis Siddiqui MD [address] [place], [place] [address] [address] PCP - General Pediatrics 07/17/17 11/21/23 documented as of this encounter
--- OUTSIDE RECORDS SUMMARY | 2025-02-26 12:19 | XMS_ITS | Clinical Summary ---
Author Organization [facility] Address [address] [place] [phone] Phone Care Team Providers Care Jail Guard Name Role Phone Unavailable Primary Care Provider [...] Type Department Care Team Description 12/31/2024 Telephone [facility] - [address] [phone] Georgette Burks MD Medical Records from Last [...]
--- OUTSIDE RECORDS SUMMARY | 2025-02-26 12:19 | XMS_ITS | Encounter Summary ---
Author Organization [facility] Address [address] [place] [address] Phone Care Team Providers Care Typewriter Operator Automatic Name Role Phone Kurtis Siddiqui MD Primary Care Provider [phone] Encounter Details Date Type Department Care Team (Late st Contact Info) Description 10/23/2016 Documentation [facility] [place] [address] [place], [place] [address] Family Medicine, Physician [address] [place] [address] Social History Tobacco Use Types Packs/Day Years [...] on filedocumented in this encounter Care Teams Typewriter Operator Automatic Relationship Specialty Start Date End Date Kurtis Siddiqui MD [address] [place] [address] [place] [address] PCP - General Pediatrics 07/17/17 11/21/23 documented as of this encounter
--- OUTSIDE RECORDS SUMMARY | 2025-02-26 12:19 | XMS_ITS | Encounter Summary ---
Author Organization [facility] Address [address] [place] [address] Phone Care Team Providers Care Roofing Sales Representative Name Role Phone Kurtis Siddiqui MD Primary Care Provider [phone] Encounter Details Date Type Department Care Team (Late st Contact Info) Description 10/20/2016 Documentation [facility] [place] [address] [place], [place] [phone] Family Medicine, Physician [address] [place] [address] Social History Tobacco Use Types Packs/Day Years [...] on filedocumented in this encounter Care Teams Roofing Sales Representative Relationship Specialty Start Date End Date Kurtis Siddiqui MD [address] [place] [address] [place] [address] PCP - General Pediatrics 07/17/17 11/21/23 documented as of this encounter
--- OUTSIDE RECORDS SUMMARY | 2025-02-26 12:19 | XMS_ITS | Encounter Summary ---
Author Organization [facility] Address [address] [place] [address] Phone Care Team Providers Care Arc Cutter Plasma Arc Name Role Phone Kurtis Siddiqui MD Primary Care Provider [phone] Encounter Details Date Type Department Care Team (Late st Contact Info) Description 02/08/2017 Conversion Encounter [facility] [place] [address] [place] [address] Social History Tobacco Use Types Packs/Day Years [...] on filedocumented in this encounter Care Teams Arc Cutter Plasma Arc Relationship Specialty Start Date End Date Kurtis Siddiqui MD [address] [place] [address] PCP - General Pediatrics 07/17/17 11/21/23 documented as of this encounter
--- OUTSIDE RECORDS SUMMARY | 2025-02-26 12:19 | XMS_ITS | Encounter Summary ---
Author Organization [facility] Address [address] [place] [address] Phone Care Team Providers Care Clinical Application Consultant Name Role Phone Kurtis Siddiqui MD Primary Care Provider [phone] Encounter Details Date Type Department Care Team (Late st Contact Info) Description 10/20/2016 [place] [facility] [place] [address] [place], [place] [phone] Family Medicine, Physician [address] [place] [address] Social History Tobacco Use Types Packs/Day Years [...] on filedocumented in this encounter Care Teams Clinical Application Consultant Relationship Specialty Start Date End Date Kurtis Siddiqui MD [address] [place] [address] [place] [address] PCP - General Pediatrics 07/17/17 11/21/23 documented as of this encounter
[2025-03-16 11:19] VITALS: BMI 23.2
--- NOTE | 2025-03-16 12:19 | HO.ANESPROP2 ---
Documented by User: Fatimah Jay NP 03/16/25 12:22 HPI - Anesthesia Eval Consult details Narrative: 24yo M for Excision Pilonidal Cyst 2016 nephrectomy d/t laceration PMFSH Active Problems Active Problems: All Active Problems Annual physical exam (Acute) Exposure to TB (Acute) Pilonidal cyst (Acute) Encounter to establish care with new provider (Acute) Surgical History Surgical History H/O right nephrectomy Social History Social History Housing: House Are you a primary family day care worker to a significant other at home: No Do you presently have visiting nurse or other home services: No Alcohol intake: current Alcohol intake frequency: a few times a month Alcohol type: beer Patient Tobacco Use Status: Never used Tobacco e-Cigarette/Vaping Use: Never Used Second Hand Smoke Exposure: No Use of substances other than those prescribed or required for medical reasons: No Have you been hit, kicked, punched, or otherwise hurt by someone within the past year? If so, by whom?: No Are you DNR?: No Advance Directives: No Advance Directives Information Provided: Yes Poor oral hygiene: No service: No Current occupational status: employed Current occupational exposures/hazards: Yes Cognitive needs: No Hearing needs: No Vision needs: No Meds Allergies Allergy/AdvReac Type Severity Reaction Status Date / Time No Known Allergies Allergy Verified 03/18/25 06:14 Home Medications ?Medication ?Instructions ?Recorded ?Confirmed ?Last Taken ?Type amoxicillin 500 mg capsule 500 mg PO TID 02/24/25 02/24/25 Unknown History Exam Height,Weight and Vital Signs: Height 6 ft 2 in Weight 82.1 kg Pertinent Lab Results Pertinent Lab Results: Laboratory Tests 11/29/24 10:08 WBC 5.8 Hgb 15.3 Hct 44.4 Plt Count 220 Sodium 139 Potassium 4.4 Chloride 104 Carbon Dioxide 28 BUN 14 Creatinine 1.14 Narrative Narrative: EKG 11/2024 Vent. Rate : 68 BPM Atrial Rate : 68 BPM P-R Int : 138 ms QRS Dur : 104 ms QT Int : 368 ms P-R-T Axes : 18 87 24 degrees QTcB Int : 391 ms Normal sinus rhythm Normal ECG No previous ECGs available Assessment and Plan Assessment Anesthesia Assessment: Chart Reviewed Documented by User: Gopal Parks MD 03/18/25 07:19 PMFSH Family History Family history of problems with anesthesia: No Surgical History Surgical History H/O right nephrectomy History of Problems with Anesthesia: No Social History Social History Housing: House Are you a primary family day care worker to a significant other at home: No Do you presently have visiting nurse or other home services: No Alcohol intake: current Alcohol intake frequency: a few times a month Alcohol type: beer Patient Tobacco Use Status: Never used Tobacco e-Cigarette/Vaping Use: Never Used Second Hand Smoke Exposure: No Use of substances other than those prescribed or required for medical reasons: No Have you been hit, kicked, punched, or otherwise hurt by someone within the past year? If so, by whom?: No Are you DNR?: No Advance Directives: No Advance Directives Information Provided: Yes Poor oral hygiene: No service: No Current occupational status: employed Current occupational exposures/hazards: Yes Cognitive needs: No Hearing needs: No Vision needs: No Meds Allergies Allergy/AdvReac Type Severity Reaction Status Date / Time No Known Allergies Allergy Verified 03/18/25 06:14 Home Medications ?Medication ?Instructions ?Recorded ?Confirmed ?Last Taken ?Type amoxicillin 500 mg capsule 500 mg PO TID 02/24/25 02/24/25 Unknown History Exam Exam Date and Time: 03/18/25 Airway TM Dist: >3cm Neck ROM: Full Loose/Missing/Broken Teeth: No Heart: rrr Lungs: cta Other: normal Assessment and Plan Assessment Anesthesia Assessment: Anesthesia Plan Discussed Final Anesthetic Review Family History of Problems with Anesthesia: No History of Problems with Anesthesia: No NPO: Yes ASA Class: I Final Preanesthetic Review: No Changes in Pt Med Stat, Meds/Allgs Chart Reviewed, Consent Obtained/Reviewed and Anes Risks/Benef Reviewed Patient Risk: Low Procedure Risk: Low Anesthetic Plan Anesthetic Plan: GA Disposition: Standard PACU
[2025-03-18 06:15] VITALS: BMI 24.1
[2025-03-18] MEDS: Lactated Ringers 1,000 ML 100 ML IVCONT (07:11)
--- NOTE | 2025-03-18 07:24 | MHC.SHP ---
Pre-Procedural Eval Section A - 24 Hr Update-Section A only Date of Service: 03/18/25 The patient is an INPATIENT: No Changes since office visit: Yes Patient answered all questions; No Cold of Flu in the past 2 weeks, No New Medical Problems and No Changes in Medication The patient has been examined within 24 hours of the surgical procedure. The History & Physical has been completed within 30 days and I have reviewed it.: Yes Section B - Complete if H&P > 30 days Chief Complaint: Pilonidal cyst without abscess Allergies: Allergies Allergy/AdvReac Type Severity Reaction Status Date / Time No Known Allergies Allergy Verified 03/18/25 06:14 Plan Diagnosis/Plan: Unchanged I have reviewed the history and physical and performed a pertinent physical examination on my patient. No changes have occurred unless specified. Time Spent With Patient Time: Total time managing care of this patient today ____ minutes.
--- NOTE | 2025-03-18 08:37 | W.PM.OPN ---
Operative Note Operative Note Date of Service: 03/18/25 Narrative: Preoperative diagnosis: Pilonidal cyst abscess Postoperative diagnosis: Same Procedure: Pilonidal cystectomy Surgeon: Bhupendra Garcias MD Air Conditioning Mechanic Industrial: Janie Marquez PA-C; SUSANNA Medellin Anesthesia: General endotracheal Indications for procedure: 24-year-old male presenting with a six-month history of persistent pain and discharge from pilonidal cyst. He reports increased drainage over the past several days with pain despite being on antibiotics. He presents today for pilonidal cystectomy Operative findings: Wide area of infection involving 3 pilonidal cyst and an abscess collection containing abundant subcutaneous hair. Specimen: Pilonidal cyst Estimated blood loss: 10 mL Complications: None Procedure details: Patient was brought to the OR and placed in a supine position. After administering general anesthesia he was placed in a prone position. He was prepped with Betadine and draped in a sterile fashion. A surgical time-out was called the consent confirmed. Patient received preoperative antibiotics and Venodyne boots were in place. Local anesthesia consisting of 0.5% Sensorcaine with epinephrine was then infiltrated circumferentially around the pilonidal cyst to include the pilonidal cyst and abscess collection. An elliptical incision was then made with a 15 blade and carried out through subcutaneous tissue and around the cyst wall. Hemostasis was assured using electrocautery and suture LigaSure of 3-0 Polysorb. The cyst was passed off the table and sent to pathology for further examination. Wound culture was obtained of the abscess collection. Wounds were then irrigated with saline solution and suctioned dry. Wounds were again checked for hemostasis. Skin flaps were then mobilized both to the left and right of midline. The deep subcutaneous tissue was then reapproximated and secured to the underlying fascia using interrupted 3-0 Polysorb sutures. Dermis was then reapproximated using interrupted 3-0 Polysorb sutures. Skin was then closed using interrupted 2-0 nylon sutures in a mattress formation. Sterile dressings consisting of 4 x 4 gauze and ABD pads were then applied. The patient tolerated the procedure well. He was returned to the supine position, extubated and awoken from anesthesia. He was transferred to PACU in stable condition. Sponge, instrument, and needle counts were reported as correct.
[2025-03-18 09:00] VITALS: BP 130/79; PULSE 79; RESP 16; TEMP 36.1; O2SAT 100
[2025-03-18 09:05] VITALS: BP 132/68; PULSE 65; RESP 16; O2SAT 95
[2025-03-18 09:10] VITALS: BP 128/74; PULSE 66; RESP 16; O2SAT 97
[2025-03-18 09:15] VITALS: BP 115/68; PULSE 59; RESP 16; O2SAT 97
[2025-03-18 09:27] VITALS: BP 127/75; PULSE 63; RESP 16; TEMP 36.1; O2SAT 98
== END 2025-03-18 09:58 | disposition home or self-care (01) ==
PROVIDERS: Visit Provider Surgery
PROC: (CPT 11771; principal; 2025-03-18 07:30)
DX: L05.01 Pilonidal cyst with abscess (principal); Z90.5 Acquired absence of kidney
CPT/HCPCS: 11771; 87070; 87205; 88304; J0690; J1100; J1171; J2405; J3010

== ENCOUNTER → 2025-03-18 05:49 | Outpatient (BNV) | payer OTHER, SELFPAY | PROVIDERS: Visit Provider Surgery | DX: L05.01 Pilonidal cyst with abscess (principal) | CPT/HCPCS: 11770 ==

== ENCOUNTER 2025-03-25 09:47 | Outpatient (AMB) | payer OTHER, SELFPAY ==
--- NOTE | 2025-03-25 09:50 | A.OFFVIS_ITS ---
Vital Signs 03/25/25 09:55 Weight 184 lb BP 124/76 Blood Pressure Location Rt brachial Position Sitting Pulse 86 Intake Visit Reasons: s/p excision pilonidal cyst Intake Note: Patient here s/p Pilonidal cystectomy. Patient c/o: tenderness at site. Denies oozing, bleeding. Taking tylenol as needed. Surgery: () 03-18-2025 Railroad Dining Car Steward/Stewardess Required: No Accompanied by: Self / Same As Patient Allergies No Known Allergies Allergy (Verified 03/25/25 09:55) HPI HPI s/p excision pilonidal cyst: Details: Doing well overall. Minimal pain at rest, some pain with prolonged sitting such as in the car, overall improving over the past few days. Initially had some bleeding but has been changing dressings every day, denies any further bleeding or drainage from the site. Denies fevers or chills. [facility] Surgical History (Updated 03/25/25 @ 10:16 by Uday Taylor PA-C) S/P pilonidal cyst excision (03/18/25) H/O right nephrectomy Social History Housing: House Are you a primary early breastfeeding care specialist to a significant other at home: No Do you presently have visiting nurse or other home services: No Alcohol intake: current Alcohol intake frequency: a few times a month Alcohol type: beer Patient Tobacco Use Status: Never used Tobacco e-Cigarette/Vaping Use: Never Used Second Hand Smoke Exposure: No service: No Current occupational status: employed Current occupational exposures/hazards: Yes Cognitive needs: No Hearing needs: No Vision needs: No Physical Exam Vital Signs: Last Vital Signs Pulse 86 03/25/25 09:55 BP 124/76 03/25/25 09:55 Const General: comfortable and no acute distress Orientation/consciousness: patient oriented x3 GI Other: Gluteal cleft, pilonidal cyst excision site: Appears well healed at this point clean dry and intact. No discharge, minimally tender to palpation sutures in place Neuro General: patient oriented x3 Assessment & Plan Assessment & Plan (1) S/P pilonidal cyst excision: Onset Date: 03/18/25 Comment: Pilonidal cystectomy Bhupendra Wallace Code(s): Z98.890 - Other specified postprocedural states Category: Medical Plan 24-year-old male s/p pilonidal cystectomy on 03/18/2025 returning to the office for routine follow up and suture removal. Overall patient doing very well pain is well controlled, only requiring occasional Tylenol use. Has been changing dressing every day, reports that there was no blood or discharge on the dressings for the past few days. He does have some pain with prolonged sitting, I reassured him that this should improve with time as the area heals. On exam the excision site appears to be healing well the sutures are in place. There was no surrounding erythema no active bleeding or discharge. I removed the sutures in office in the wound remained intact. Instructed him to keep this covered for today if there was no further bleeding he can stop with daily dressing changes. Instructed him to keep this area clean and dry as best as possible, including shaving of this area as he has a decent amount of hair and this could result in recurrence. He does have an appointment in about a week for follow-up if he is still doing well without any concerns it is okay if he wants to cancel this appointment. He should remain out of work for the next week, understands this. He will call or schedule an appointment with any concerns in the future. Coding Level of Care Code Global (41069) Diagnoses S/P pilonidal cyst excision Z98.890
[2025-03-25 09:55] VITALS: BP 124/76; PULSE 86
--- OUTSIDE RECORDS SUMMARY | 2025-03-25 10:43 | XMS_ITS | Encounter Summary ---
Author Organization [facility] Address [address] [place] [address] Phone Care Team Providers Care Sample Worker Name Role Phone Kurtis Siddiqui MD Primary Care Provider [phone] Encounter Details Date Type Department Care Team (Late st Contact Info) Description 10/20/2016 Documentation [facility] [place] [address] [place], [place] [phone] Family Medicine, Physician [address] [place] [address] Social History Tobacco Use Types Packs/Day Years [...] on filedocumented in this encounter Care Teams Sample Worker Relationship Specialty Start Date End Date Kurtis Siddiqui MD [address] [place] [address] [place] [address] PCP - General Pediatrics 07/17/17 11/21/23 documented as of this encounter
--- OUTSIDE RECORDS SUMMARY | 2025-03-25 10:43 | XMS_ITS | Encounter Summary ---
Author Organization [facility] Address [address] [place] [address] Phone Care Team Providers Care Media Developer Name Role Phone Kurtis Siddiqui MD Primary Care Provider [phone] Encounter Details Date Type Department Care Team (Late st Contact Info) Description 01/30/2014 Documentation [facility] [place] [address] [place], [place] [phone] Family Medicine, Physician [address] [place] [address] Social History Tobacco Use Types Packs/Day Years [...] on filedocumented in this encounter Care Teams Media Developer Relationship Specialty Start Date End Date Kurtis Siddiqui MD [address] [place], [place] [address] [address] PCP - General Pediatrics 07/17/17 11/21/23 documented as of this encounter
--- OUTSIDE RECORDS SUMMARY | 2025-03-25 10:43 | XMS_ITS | Clinical Summary ---
Author Organization [facility] Address [address] [place] [address] Phone Care Team Providers Care Transmission Worker Name Role Phone Unavailable Primary Care Provider [...] Type Department Care Team Description 12/31/2024 Telephone [facility] - [address] [id number] Georgette Burks MD Medical Records from Last [...]
--- OUTSIDE RECORDS SUMMARY | 2025-03-25 10:43 | XMS_ITS | Encounter Summary ---
Author Organization [facility] Address [address] [place] [address] Phone Care Team Providers Care Continuous Drier Helper Name Role Phone Kurtis Siddiqui MD Primary Care Provider [phone] Encounter Details Date Type Department Care Team (Late st Contact Info) Description 10/23/2016 Documentation [facility] [place] Family Medicine [address] [place], [place] [phone] Family Medicine, Physician [address] [place] [address] Social History Tobacco Use Types Packs/Day Years [...] on filedocumented in this encounter Care Teams Continuous Drier Helper Relationship Specialty Start Date End Date Kurtis Siddiqui MD [address] [place] [address] [place] [address] PCP - General Pediatrics 07/17/17 11/21/23 documented as of this encounter
--- OUTSIDE RECORDS SUMMARY | 2025-03-25 10:43 | XMS_ITS | Encounter Summary ---
Author Organization [facility] Address [address] [place] [address] Phone Care Team Providers Care Monotype Setter Name Role Phone Kurtis Siddiqui MD Primary Care Provider [phone] Encounter Details Date Type Department Care Team (Late st Contact Info) Description 10/20/2016 Documentation [facility] [place] [address] [place], [place] [id number] Family Medicine, Physician [address] [place] [address] Social History Tobacco Use Types Packs/Day Years [...] on filedocumented in this encounter Care Teams Monotype Setter Relationship Specialty Start Date End Date Kurtis Siddiqui MD [address] [place] [address] [place] [address] PCP - General Pediatrics 07/17/17 11/21/23 documented as of this encounter
--- OUTSIDE RECORDS SUMMARY | 2025-03-25 10:43 | XMS_ITS | Encounter Summary ---
Author Organization [facility] Address [address] [place] [address] Phone Care Team Providers Care Director Of Home Health Services Name Role Phone Kurtis Siddiqui MD Primary Care Provider [phone] Encounter Details Date Type Department Care Team (Late st Contact Info) Description 09/03/2015 Documentation [facility] [place] [address] [place], [place] [id number] Family Medicine, Physician [address] [place], [place] [address] Social History Tobacco Use Types Packs/Day Years [...] on filedocumented in this encounter Care Teams Director Of Home Health Services Relationship Specialty Start Date End Date Kurtis Siddiqui MD [address] [place], [place] [address] PCP - General Pediatrics 07/17/17 11/21/23 documented as of this encounter
--- OUTSIDE RECORDS SUMMARY | 2025-03-25 10:43 | XMS_ITS | Encounter Summary ---
Author Organization [facility] Address [address] [place] [address] Phone Care Team Providers Care Manager Hiv Name Role Phone Kurtis Siddiqui MD Primary Care Provider [phone] Encounter Details Date Type Department Care Team (Late st Contact Info) Description 02/08/2017 Conversion Encounter [facility] [place] [address] [place] [address] Social History Tobacco Use Types Packs/Day Years [...] on filedocumented in this encounter Care Teams Manager Hiv Relationship Specialty Start Date End Date Kurtis Siddiqui MD [address] [place] [address] PCP - General Pediatrics 07/17/17 11/21/23 documented as of this encounter
== END 2025-03-25 10:03 | disposition home or self-care (01) ==
LOC: HO.HGS 09:48
DX: Z98.890 Other specified postprocedural states (principal)
CPT/HCPCS: 99024

== ENCOUNTER 2025-03-31 14:10 | Outpatient (AMB) | payer OTHER, SELFPAY ==
--- NOTE | 2025-03-31 14:14 | MHC.OFFVIS ---
Vital Signs 03/31/25 14:19 Weight 184 lb BP 139/85 Blood Pressure Location Rt brachial Position Sitting Pulse 85 Intake Visit Reasons: yvonne cyst Intake Note: Patient here for wound check. Pilonidal cystectomy 03-18-2025. MAXIM (LEANN): 03-25-2025 Patient c/o: mild bleeding at superior part of incision. Train Operations Manager Required: No Accompanied by: Self / Same As Patient Allergies No Known Allergies Allergy (Verified 03/31/25 14:20) HPI HPI yvonne cyst: Details: doing well did notice some small amounts of bloody drainage over the past few days. Reports it is very minimal, has been covering with a bandaid. He denies any purulent drainage. Denies pain, fever, chills. [facility] Surgical History (Updated 03/25/25 @ 10:16 by Uday Taylor PA-C) S/P pilonidal cyst excision (03/18/25) H/O right nephrectomy Social History Housing: House Are you a primary certified social workers in health care to a significant other at home: No Do you presently have visiting nurse or other home services: No Alcohol intake: current Alcohol intake frequency: a few times a month Alcohol type: beer Patient Tobacco Use Status: Never used Tobacco e-Cigarette/Vaping Use: Never Used Second Hand Smoke Exposure: No service: No Current occupational status: employed Current occupational exposures/hazards: Yes Cognitive needs: No Hearing needs: No Vision needs: No Review of Systems Const All systems reviewed & are unremarkable except as noted in HPI and below Physical Exam Vital Signs: Last Vital Signs Pulse 85 03/31/25 14:19 BP 139/85 03/31/25 14:19 Const General: comfortable and no acute distress Orientation/consciousness: patient oriented x3 GI Other: Gluteal cleft, pilonidal cyst excision site: Appears well healed at this point clean dry and intact. Scant bloody discharge. Small pinpoint opening at the superior aspect of the incision site. no surrounding cellulitic changes Neuro General: patient oriented x3 Assessment & Plan Assessment & Plan (1) S/P pilonidal cyst excision: Onset Date: 03/18/25 Comment: Pilonidal cystectomy Bhupendra Wallace Code(s): Z98.890 - Other specified postprocedural states Category: Surgical Plan 24-year-old male s/p pilonidal cystectomy on 03/18/2025 returning to the office for routine follow up. Overall patient doing well, no pain but noticed some bleeding over the past few days. has been keeping it covered with a bandaid. On exam the excision site appears to be healing well, there is a small pinpoint opening at the superior aspect of the incision site with scant blood. There are no cellulitic changes and the area was nontender. no concern for infection at this time. Instructed him to keep this covered with bandaid going forward until he does not notice any bleeding. Instructed him to keep this area clean and dry as best as possible, including shaving of this area as he has a decent amount of hair and this could result in recurrence. He is no longer requiring follow up, can follow up as needed in the future. Coding Level of Care Code Global (80069) Diagnoses S/P pilonidal cyst excision Z98.890
[2025-03-31 14:19] VITALS: BP 139/85; PULSE 85
--- OUTSIDE RECORDS SUMMARY | 2025-03-31 17:24 | XMS_ITS | Encounter Summary ---
Author Organization [facility] Address [address] [place] [address] Phone Care Team Providers Care Pharmacist Per Diem Name Role Phone Kurtis Siddiqui MD Primary Care Provider [phone] Encounter Details Date Type Department Care Team (Late st Contact Info) Description 02/08/2017 Conversion Encounter [facility] [place] [address] [place] [address] Social History Tobacco Use Types Packs/Day Years [...] on filedocumented in this encounter Care Teams Pharmacist Per Diem Relationship Specialty Start Date End Date Kurtis Siddiqui MD [address] [place] [address] PCP - General Pediatrics 07/17/17 11/21/23 documented as of this encounter
--- OUTSIDE RECORDS SUMMARY | 2025-03-31 17:24 | XMS_ITS | Encounter Summary ---
Author Organization [facility] Address [address] [place] [address] Phone Care Team Providers Care Roustabout Crew Pusher Name Role Phone Kurtis Siddiqui MD Primary Care Provider Encounter Details Date Type Department Care Team (Late st Contact Info) Description 10/20/2016 Documentation [facility] [place] [address] [place], [place] [phone] Family Medicine, Physician [address] [place] [address] Social History Tobacco Use Types Packs/Day Years [...] on filedocumented in this encounter Care Teams Roustabout Crew Pusher Relationship Specialty Start Date End Date Kurtis Siddiqui MD [address] [place] [address] [place] [address] PCP - General Pediatrics 07/17/17 11/21/23 documented as of this encounter
--- OUTSIDE RECORDS SUMMARY | 2025-03-31 17:24 | XMS_ITS | Encounter Summary ---
Author Organization [facility] Address [address] [place] [address] Phone Care Team Providers Care Reimbursement Liaison Name Role Phone Kurtis Siddiqui MD Primary Care Provider [phone] Encounter Details Date Type Department Care Team (Late st Contact Info) Description 10/23/2016 Documentation [facility] [place] [address] [place], [place] [id number] Family Medicine, Physician [address] [place] [address] Social History Tobacco Use Types Packs/Day Years [...] on filedocumented in this encounter Care Teams Reimbursement Liaison Relationship Specialty Start Date End Date Kurtis Siddiqui MD [address] [place] [address] [place] [address] PCP - General Pediatrics 07/17/17 11/21/23 documented as of this encounter
--- OUTSIDE RECORDS SUMMARY | 2025-03-31 17:24 | XMS_ITS | Encounter Summary ---
Author Organization [facility] Address [address] [place] [address] Phone Care Team Providers Care Chemical Equipment Controller Name Role Phone Kurtis Siddiqui MD Primary Care Provider [phone] Encounter Details Date Type Department Care Team (Late st Contact Info) Description 01/30/2014 Documentation [facility] [place] [address] [place], [place] [phone] Family Medicine, Physician [address] [place] [address] Social History Tobacco Use Types Packs/Day Years [...] on filedocumented in this encounter Care Teams Chemical Equipment Controller Relationship Specialty Start Date End Date Kurtis Siddiuqi MD [address] [place], [place] [address] PCP - General Pediatrics 07/17/17 11/21/23 documented as of this encounter
--- OUTSIDE RECORDS SUMMARY | 2025-03-31 17:24 | XMS_ITS | Clinical Summary ---
Author Organization [facility] Address [address] [place] [address] Phone Care Team Providers Care Electronic Gluing Machine Operator Name Role Phone Unavailable Primary Care Provider [...] Type Department Care Team Description 12/31/2024 Telephone [facility] - [address] [phone] Georgette Burks MD Medical Records from Last [...]
--- OUTSIDE RECORDS SUMMARY | 2025-03-31 17:24 | XMS_ITS | Encounter Summary ---
Author Organization [facility] Address [address] [place] [address] Phone Care Team Providers Care Specialty Trimmer Name Role Phone Kurtis Siddiqui MD Primary Care Provider [phone] Encounter Details Date Type Department Care Team (Late st Contact Info) Description 10/20/[address] [facility] [place] Family Medicine [address] [place], [place] [phone] Family Medicine, Physician [address] [place] [address] Social History Tobacco Use Types Packs/Day Years [...] on filedocumented in this encounter Care Teams Specialty Trimmer Relationship Specialty Start Date End Date Kurtis Siddiqui MD [address] [place] [address] [place] [address] PCP - General Pediatrics 07/17/17 11/21/23 documented as of this encounter
--- OUTSIDE RECORDS SUMMARY | 2025-03-31 17:24 | XMS_ITS | Encounter Summary ---
Author Organization [facility] Address [address] [place] [address] Phone Care Team Providers Care Web Database Developer Name Role Phone Kurtis Siddiqui MD Primary Care Provider [phone] Encounter Details Date Type Department Care Team (Late st Contact Info) Description 09/03/2015 Documentation [facility] [place] [address] [place], [place] [phone] Family Medicine, Physician [address] [place] [place], [place] [address] Social History Tobacco Use Types Packs/Day Years [...] on filedocumented in this encounter Care Teams Web Database Developer Relationship Specialty Start Date End Date Kurtis Siddiqui MD [address] [place], [place] [address] [address] PCP - General Pediatrics 07/17/17 11/21/23 documented as of this encounter
== END 2025-03-31 14:25 | disposition home or self-care (01) ==
LOC: HO.HGS 14:11
DX: Z98.890 Other specified postprocedural states (principal)
CPT/HCPCS: 99024